=== PATIENT | male | born 1980 | race Caucasian/White ===

== ENCOUNTER → 2021-11-07 | Outpatient (CLI) | payer BC ==
--- NOTE | 2021-11-07 15:51 | XR ---
EXAMINATION TYPE: XR KUB DATE OF EXAM: 11/07/2021 HISTORY: Pain Comparison: None.Single KUB is submitted for interpretation. Findings: Right renal calculi: None Visualized. Right ureteral calculi: None Visualized. Left renal calculi: None Visualized. Left ureteral calculi: None Visualized. Pelvic calcifications: None Visualized. Bowel gas pattern is unremarkable. No free air. No mass effects. IMPRESSION: 1. No radiopaque calculus seen with certainty.
== END | disposition home or self-care (01) ==
LOC: RADXRMAIN 15:21
PROVIDERS: ATTEND Urology
DX: N20.1 Calculus of ureter (principal)
CPT/HCPCS: 74018

== ENCOUNTER → 2021-11-13 | Outpatient (CLI) | payer BC ==
--- NOTE | 2021-11-13 15:12 | CT ---
EXAMINATION TYPE: CT abdomen pelvis wo con DATE OF EXAM: 11/13/2021 COMPARISON: None HISTORY: 41-year-old male N2 0, kidney stone, flank pain CT DLP: 413.7 mGycm. Automated exposure control for dose reduction was used. TECHNIQUE: Contiguous axial scanning of the abdomen and pelvis without IV contrast. Coronal and sagit sari reconstructions performed. FINDINGS: Heart normal size without pericardial effusion. Lung bases clear without pleural effusion. Small hiatal hernia. 1.0 cm hypodense lesion left hepatic dome inadequately characterized, likely a benign liver cyst. Oth erwise, noncontrast appearance of the liver, gallbladder, adrenal glands, spleen, and pancreas show n o gross bowel. No renal calculi. Mild fullness of the left renal collecting system, asymmetric to the contralateral side. There is a 5 mm calcification at the left UVJ. No dilated small bowel, free fluid, or free air. No retroperitoneal lymphadenopathy. A few scattered prominent but nonenlarged left abdominal mesenteric lymph nodes measuring up to 5 mm. Normal appendix. Nonspecific calcification along the right common iliac chain measuring 8 mm, probabl y old postinflammatory calcified lymph node. Moderate stool within the right side of the colon. No pericolonic inflammatory change. Mildly redunda nt sigmoid colon. Bladder partially distended. Prostate gland measures 4.2 cm wide. No abnormal fluid collection in the pelvis or pelvic lymphadenopathy. Phleboliths in the right side of the pelvis. Bones: Bilateral anterior femoral head neck junction can trace. Mild degenerative change at both hips . There are bilateral L5 pars defects with trace grade 1 anterolisthesis at L5-S1. IMPRESSION: 1. A 5 mm calculus at the left UVJ without any significant hydronephrosis appreciated at this time. 2. Moderate stool in the right side of the colon. Small hiatal hernia. 3. Bilateral L5 pars defects with trace grade 1 anterolisthesis at L5-S1.
== END | disposition home or self-care (01) ==
LOC: RADCTMAIN 14:14
PROVIDERS: ATTEND Urology
DX: N20.1 Calculus of ureter (principal); K44.9 Diaphragmatic hernia without obstruction or gangrene; K63.89 Other specified diseases of intestine; M43.17 Spondylolisthesis, lumbosacral region
CPT/HCPCS: 74176

== ENCOUNTER → 2021-12-08 | Outpatient (CLI) | payer BC ==
--- NOTE | 2021-12-08 11:17 | XR ---
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 Scattered mild to moderate stool. Redemonstrated 7 mm calcification , probably phlebolith projecting at the mid aspect of the right SI joint. Unchanged phlebolith right side of the pelvis. The left UVJ calculus described on patient's CT is not well-demonstrated radiogra phically. Impression: Small left UVJ calculus described on CT of 11/13/2021 is not well seen radiographically. There is a 7 mm calcification projecting at the mid aspect of the right SI joint likely phlebolith. An additional suspected small phlebolith in the right side of the pelvis.
== END | disposition home or self-care (01) ==
LOC: RADXRMAIN 10:37
PROVIDERS: ATTEND Urology
DX: N20.1 Calculus of ureter (principal); M53.3 Sacrococcygeal disorders, not elsewhere classified
CPT/HCPCS: 74018